=== PATIENT | male | born 1975 | race Two or more races ===

== ENCOUNTER 2021-02-20 06:52 | Emergency (ER) | payer BC, OTHER ==
[~2021-02-20] VITALS: Ht 175.3 cm; Wt 81.6 kg
[2021-02-20 07:20] VITALS: BP 159/76
== END 2021-02-20 07:47 | disposition home or self-care (01) ==
LOC: ER 06:52
DX: L03.011 Cellulitis of right finger (principal); I10 Essential (primary) hypertension
CPT/HCPCS: 73140

== ENCOUNTER 2021-09-18 07:06 | Emergency (ER) | payer BC ==
[~2021-09-18] VITALS: Ht 175.3 cm; Wt 81.6 kg
[2021-09-18] MEDS ORDERED: IBU600T PO (07:56)
[2021-09-18] MEDS ORDERED: HYDROcodone-ACET 10/325MG TAB PO ONE (08:30)
[2021-09-18] MEDS ORDERED: KETOROLAC TROMETH 60MG/2ML VIAL IM ONE (08:30)
[2021-09-18 08:39] VITALS: BP 152/93
== END 2021-09-18 08:46 | disposition home or self-care (01) ==
LOC: ER 07:06
DX: R51.9 Headache, unspecified (principal); I10 Essential (primary) hypertension
CPT/HCPCS: 70450